=== PATIENT | female | born 1995 | race Caucasian/White ===

== ENCOUNTER → 2016-07-24 | Outpatient (CLI) | payer OTHER ==
--- NOTE | 2016-07-24 14:37 | XR ---
EXAMINATION TYPE: XR thoracic spine complete DATE OF EXAM: 07/24/2016 2:29 PM CLINICAL HISTORY: pain TECHNIQUE: Frontal, lateral, and swimmer's view of thoracic spine are obtained. COMPARISON: None. FINDINGS: Thoracic spine show satisfactory alignment without evidence of acute fracture or dislocatio n. Vertebral body heights are preserved. Disc spaces are well preserved. Visualized ribs are unrem arkable. IMPRESSION: No acute fracture or dislocation is seen in the thoracic spine. ICD 10 NO FRACTURE, INIT IAL EVALUATION
== END | disposition home or self-care (01) ==
LOC: RADXRMAIN 14:07
PROVIDERS: ATTEND Emergency Medicine
DX: S23.3XXA Sprain of ligaments of thoracic spine, initial encounter (principal)
CPT/HCPCS: 72072

== ENCOUNTER → 2016-07-26 | Outpatient (CLI) | payer OTHER ==
--- NOTE | 2016-07-26 11:33 | XR ---
EXAM TYPE: LUMBAR SPINE X RAY SERIES COMPARISON: NONE HISTORY: Lower back pain TECHNIQUE: 4 views are submitted. FINDINGS: Alignment is anatomic. The pedicles are intact. The transverse processes are intact. There is no s pondylolysis or spondylolisthesis. Mild hypertrophic change L5. IMPRESSION: 1. No acute process. If symptoms persist consider MRI lumbar spine.
== END | disposition home or self-care (01) ==
LOC: RADXRMAIN 10:06
PROVIDERS: ATTEND Emergency Medicine
DX: S39.012D Strain of muscle, fascia and tendon of lower back, subsequent encounter (principal)
CPT/HCPCS: 72100

== ENCOUNTER → 2017-01-29 | Outpatient (CLI) | payer OTHER ==
--- NOTE | 2017-01-29 16:01 | XR ---
Left knee HISTORY: Trauma and pain 3 views of the left knee No comparisons Bone mineralization, joint spaces and alignment are maintained. Suspect soft tissue swelling. No siza ble effusion. IMPRESSION: No fracture or dislocation.
== END | disposition home or self-care (01) ==
LOC: LABWHC1 15:10 → EDSTATUS 15:32
PROVIDERS: ATTEND Emergency Medicine
DX: N91.2 Amenorrhea, unspecified (principal); S80.02XA Contusion of left knee, initial encounter
CPT/HCPCS: 81025

== ENCOUNTER → 2021-03-08 | Outpatient (CLI) | payer OTHER ==
--- NOTE | 2021-03-08 11:08 | XR ---
EXAMINATION TYPE: XR knee complete RT DATE OF EXAM: 03/08/2021 CLINICAL HISTORY: pain TECHNIQUE: Three views of the right knee are obtained. COMPARISON: None. FINDINGS: There is no acute fracture/dislocation. The tri-compartment joint spaces appear within no rmal limits. The overlying soft tissue appears unremarkable. IMPRESSION: There is no acute fracture or dislocation.ICD 10 NO FRACTURE, INITIAL EVALUATION
== END | disposition home or self-care (01) ==
LOC: RADXRMAIN 10:38
PROVIDERS: ATTEND Emergency Medicine
DX: M25.561 Pain in right knee (principal)

== ENCOUNTER → 2021-04-03 | Outpatient (CLI) | payer OTHER ==
--- NOTE | 2021-04-03 10:35 | CT ---
EXAMINATION TYPE: CT knee RT wo con DATE OF EXAM: 04/03/2021 COMPARISON: Radiograph 03/08/2021 HISTORY: 25-year-old female S83.91XD sprain R knee, S80.01XD Contusion R knee. Contusion Rt Knee TECHNIQUE: Contiguous axial scanning of the right knee without IV contrast. Coronal and sagittal hafsa nstructions performed. 3-D reconstructions generated on a dedicated independent workstation. CT DLP: 159 mGycm Automated exposure control for dose reduction was used. FINDINGS: There is a subtle 1 mm step-off along the articular surface of the upper third apex of the patella, f urther sagittal image 28. Some prominent nutrient foramen are noted along the distal pre-femoral philip ex. No significant joint effusion or lipohemarthrosis is seen. Mild anterior infrapatellar soft tissue swelling. Extensor mechanism appears intact. The patella shawn ins a peripherally situated along the trochlear groove. Subtle lucency along the anterior lip of the lateral femoral condyle, sagittal image 22 represent an additional nutrient foramen. No Cardenas's cyst. Otherwise, no acute fracture, subluxation, dislocation. IMPRESSION: 1. THERE IS A SUBTLE 1 MM STEP-OFF ALONG THE ARTICULAR SURFACE OF THE MID PATELLA (SAGITTAL IMAGE 28) . FINDINGS MAY BE DEVELOPMENTAL. A SUBTLE NONDISPLACED CORTICAL FRACTURE IS DIFFICULT TO EXCLUDE. THE LACK OF A SIGNIFICANT JOINT EFFUSION FAVORS THE FORMER. 2. SIMILARLY, A SUBTLE LUCENCY ALONG THE ANTERIOR LIP OF THE LATERAL FEMORAL CONDYLE (SAGITTAL IMAGE 22) COULD REPRESENT A PROMINENT NUTRIENT FORAMEN RATHER THAN A TINY CORTICAL FRACTURE. 3. CLINICAL FOLLOW-UP RECOMMENDED. IF PAIN PERSISTS, MRI CAN BE CONSIDERED.
== END | disposition home or self-care (01) ==
LOC: RADCTMAIN 09:46
PROVIDERS: ATTEND Emergency Medicine
DX: S80.01XA Contusion of right knee, initial encounter (principal)

== ENCOUNTER → 2021-05-12 | Outpatient (CLI) | payer OTHER ==
--- NOTE | 2021-05-13 04:48 | MR ---
EXAMINATION TYPE: MR knee RT wo con DATE OF EXAM: 05/12/2021 COMPARISON: None HISTORY: No prior MR, right knee pain for 2 months Multiplanar multiecho imaging of the right knee without contrast. The anterior and posterior cruciate ligaments are intact. There is a mild knee joint effusion. The me dial and lateral menisci appear intact. The patella tendon is intact. Collateral ligaments appear int act. There is no evidence of a fracture. No bone edema. Tibial spines appear intact. There is no evid ence of a soft tissue mass. Patella appears normal. IMPRESSION: Mild knee joint effusion consistent with some nonspecific synovitis. No evidence of ligamentous or me niscal tear. No fracture.
== END | disposition home or self-care (01) ==
LOC: RADMRIMAIN 12:57
PROVIDERS: ATTEND Orthopaedic Surgery
DX: M25.461 Effusion, right knee (principal)